=== PATIENT | female | born 2000 | race Caucasian/White ===

== ENCOUNTER 2020-06-14 18:48 | Outpatient (REF) | payer OTHER, SELFPAY ==
--- NOTE | 2020-06-14 | MR_ITS ---
EXAMINATION: MR BRAIN WITHOUT AND WITH CONTRAST CLINICAL INFORMATION: Seizures. Renal impairment. COMPARISON: None TECHNIQUE: Multiplanar, multisequence MRI of the brain was obtained before and after the intravenous administration of 5 mL Gadavist. FINDINGS: Normal No focal reduced diffusion is seen to suggest acute or subacute cerebral ischemia. No intracranial mass, intracerebral edema, intra-axial blood products, midline shift, or extra-axial collection is visualized. On coronal images, there is normal symmetry of mesial temporal lobes and medial temporal horns of the lateral ventricle. Postcontrast, there is no pathologic enhancement seen in the temporal lobes or in the rest of the brain. The ventricles and sulcal spaces appear normal. Normal arterial and venous vascular flow voids are present. The paranasal sinuses are well aerated. MR/MR head/brain wo/w con IMPRESSION: Unremarkable MRI brain with and without contrast.
== END 2020-06-14 18:49 | disposition home or self-care (01) ==
LOC: HO.MRI 18:48
PROVIDERS: PCP Pediatrics; Visit Provider Pediatrics
DX: R56.9 Unspecified convulsions (principal)
CPT/HCPCS: 70553; A9585

== ENCOUNTER 2020-06-20 08:06 | Outpatient (REF) | payer OTHER, SELFPAY ==
--- NOTE | 2020-06-20 08:00 | EEG_ITS ---
Waking background activity consists of a moderate to high voltage 9 to 9.5 hertz alpha frequency intermixed anteriorly with low-voltage fast frequencies. Recurrent paroxysmal sharp transients are seen from the frontoparietal regions occurring independently over both hemispheres. Photic stimulation is without activation. Hyperventilation was omitted. No sleep stages are identified. IMPRESSION: This is an abnormal EEG due to recurrent paroxysmal sharp discharges seen occurring independently from the frontoparietal regions bilaterally that would correlate with a seizure disorder, which may be multifocal. Clinical correlation is suggested. MD DEMI Yee/THERESA / [id number]
== END 2020-06-20 08:07 | disposition home or self-care (01) ==
LOC: HO.NEURO 08:06
PROVIDERS: Visit Provider Pediatrics
DX: R56.9 Unspecified convulsions (principal)
CPT/HCPCS: 95816

== ENCOUNTER 2021-02-05 12:03 | Outpatient (REF) | payer OTHER, SELFPAY | END 2021-02-05 12:04 | disposition home or self-care (01) | LOC: HO.LAB 12:03 | PROVIDERS: Visit Provider Psychiatry & Neurology Neurology | DX: G40.909 Epilepsy, unspecified, not intractable, without status epilepticus (principal) | CPT/HCPCS: 36415; 80164 ==

== ENCOUNTER 2023-05-27 14:50 | Outpatient (REF) | payer OTHER, SELFPAY ==
[2023-05-27 15:48] LABS: Alanine Aminotransferase 15 U/L (0-31); Albumin Level 4.1 g/dL (3.5-5.0); Alkaline Phosphatase 62 U/L (39-117); Aspartate Amino Transferase 18 U/L (5-31); Bilirubin Direct 0.1 mg/dL (0.0-0.5); Bilirubin Total 0.3 mg/dL (0.0-1.0); Total Protein 7.3 g/dL (6.5-8.0)
== END 2023-05-27 14:51 | disposition home or self-care (01) ==
LOC: HO.LAB 14:50
PROVIDERS: PCP Pediatrics; Visit Provider Psychiatry & Neurology Neurology
DX: G40.909 Epilepsy, unspecified, not intractable, without status epilepticus (principal)
CPT/HCPCS: 36415; 80076